=== PATIENT | female | born 1955 | race African-American/Black ===

== ENCOUNTER → 2017-09-17 | Outpatient (CLI) | payer MEDICARE ==
--- NOTE | 2017-09-18 18:12 | WOMENS IMAGING REPORT ---
EXAM DESCRIPTION: 3D SCREENING MAMMO BILAT COMPLETED DATE/TIME: 09/17/2017 12:38 pm REASON FOR STUDY: SCREENING MAMMOM /Z12.31 Z12.31 ENCNTR SCREEN MAMMOGRAM FOR MALIGNANT NEOPLASM OF ASHLYN COMPARISON: None. TECHNIQUE: Standard craniocaudal and mediolateral oblique views of each breast recorded using digita l acquisition and breast tomosynthesis. LIMITATIONS: None. FINDINGS: No masses, calcifications or architectural distortion. No areas of suspicion. Read with the assistance of CAD. .[facility] - R2 Cenova Version 1.3 .[facility] - R2 Cenova Version 1.3 .[facility] - R2 Cenova Version 2.4 .[facility] [place] [place] - R2 Cenova Version 2.4 .[facility] - R2 Billing Representative Version 9.2 IMPRESSION: NORMAL MAMMOGRAM. BIRADS 1. BREAST DENSITY: b. There are scattered areas of fibroglandular density. BIRAD: 1 NEGATIVE RECOMMENDATION: ROUTINE SCREENING COMMENT: The patient has been notified of the results by letter per SA requirements. Additional no tification policies are in place for contacting patient with suspicious or incomplete findings. Quality ID #225: The [employer] recommends an annual screening mammogram for women aged 40 years or over. This facility utilizes a reminder system to ensure that all patients receive reminder letters, and/or direct phone calls for appointments. This includes reminders for routine scr eening mammograms, diagnostic mammograms, or other Breast Imaging Interventions when appropriate. Th is patient will be placed in the appropriate reminder system. The [employer] (ACR) has developed recommendations for screening MRI of the breast s in certain patient populations, to be used in conjunction with mammography. Breast MRI surveillanc e may be appropriate for women with more than 20% lifetime risk of developing breast cancer as deter mined by genetic testing, significant family history of the disease, or history of mantle radiation f or Hodgkins Disease. ACR Practice Guidelines 2008. DBT Technology DBT is a type of tomographic mammography. With conventional mammography, overlapping breast tissue ma y make lesions difficult to detect, even with good compression. DBT uses an x-ray tube that rotates a round the breast, taking images at different angles. These images are then combined to create thin sl ices of the breast that the radiologist can view as a 3D reconstruction. The [employer]. unit can perform full-field digital mammograms (2D imaging); or DBT (3D imaging); or both, in a combination mode that quickly performs both the mammogram and the tomosynthesis scan while the breast is still compressed. PQRS 6045F: Fluoroscopic imaging is not utilized for breast tomosynthesis. TECHNICAL DOCUMENTATION: FINDING NUMBER: (1) ASSESSMENT: (1) JOB ID: [id number] [employer]- All Rights Reserved Reading location - IP/workstation name: [email or web address]
== END ==
LOC: WI 11:23
PROVIDERS: ATTEND Physician Assistant
DX: Z12.31 Encounter for screening mammogram for malignant neoplasm of breast (principal)
CPT/HCPCS: 77063; 77067

== ENCOUNTER → 2017-10-09 | Outpatient (CLI) | payer MEDICARE ==
--- NOTE | 2017-10-09 11:12 | RADIOLOGY REPORT (SQ) ---
EXAM DESCRIPTION: CT ABDOMEN COMBO COMPLETED DATE/TIME: 10/09/2017 10:41 am REASON FOR STUDY: ABNORMAL RADIOLOGIC FINDINGS ON DX IMAGING OF R KIDNEY R93.421 ABNORMAL RADIOLOGI C FINDINGS ON DX IMAGING OF R KIDN COMPARISON: None. TECHNIQUE: CT scan of the abdomen performed with and without intravenous contrast, and without oral contrast. Contrasted imaging performed using helical scanning technique with dynamic intravenous cont rast injection. Images reviewed with lung, soft tissue, and bone windows. Reconstructed coronal and s agittal MPR images reviewed. Delayed images for evaluation of the urinary system also acquired and ev aluated. All images stored on PACS. All CT scanners at this facility use dose modulation, iterative reconstruction, and/or weight based d osing when appropriate to reduce radiation dose to as low as reasonably achievable (ALARA). [facility]: Dose Right [facility]: CareDose [facility]: Dose Right [facility]: Teradose 4D [facility]: [employer] CONTRAST TYPE AND DOSE: contrast/concentration: Isovue 370.00 mg/ml; Total Contrast Delivered: 112.0 ml; Total Saline Delivered: 160.0 ml RENAL FUNCTION: Creatinine 1.0 RADIATION DOSE: CT Rad equipment meets quality standard of care and radiation dose reduction techniq ues were employed. CTDIvol: 11.3 - 33.8 mGy. DLP: 2075 mGy-cm.. LIMITATIONS: None. FINDINGS: NONCONTRASTED IMAGING: No significant renal or bladder calcifications. No other significan t organ calcifications. POSTCONTRASTED IMAGING: LOWER CHEST: No significant findings. No nodules or infiltrates. LIVER: Normal size. No masses. No dilated ducts. SPLEEN: Normal size. No focal lesions. PANCREAS: No masses. No significant calcifications. No adjacent inflammation or peripancreatic fluid collections. Pancreatic duct not dilated. GALLBLADDER: No identified stones by CT criteria. No inflammatory changes to suggest cholecystitis. ADRENAL GLANDS: No significant masses or asymmetry. RIGHT KIDNEY AND URETER: No solid masses. Small 1.2 cm in diameter renal cyst is identified. There are focal areas of cortical thinning which could represent scarring or old renal infarcts. No signi ficant calcifications. No hydronephrosis or hydroureter. LEFT KIDNEY AND URETER: No solid masses. Couple small cortical defects are identified which could re present scarring or old renal infarcts. No significant calcifications. No hydronephrosis or hydrou reter. AORTA AND VESSELS: No aneurysm. No dissection. Renal arteries, SMA, celiac without stenosis. RETROPERITONEUM: No retroperitoneal adenopathy, hemorrhage or masses. BOWEL AND PERITONEAL CAVITY: No masses or inflammatory changes. No free fluid or peritoneal masses. APPENDIX: Not visualized ABDOMINAL WALL: No masses. No hernias. BONES: No significant or acute findings. OTHER: No other significant finding. IMPRESSION: No renal masses are identified. Small right renal cyst. Bilateral cortical defects are identified right greater than left which could represent scarring or old renal infarcts. Other find ings as noted above TECHNICAL DOCUMENTATION: JOB ID: [id number] Quality ID # 436: Final reports with documentation of one or more dose reduction techniques (e.g., Au tomated exposure control, adjustment of the mA and/or kV according to patient size, use of iterative reconstruction technique) 2010 [employer]- All Rights Reserved Reading location - IP/workstation name: [email or web address]
== END ==
LOC: RAD 09:55
PROVIDERS: ATTEND Physician Assistant
DX: R93.421 Abnormal radiologic findings on diagnostic imaging of right kidney (principal); R93.2 Abnormal findings on diagnostic imaging of liver and biliary tract; N28.1 Cyst of kidney, acquired
CPT/HCPCS: 74170

== ENCOUNTER → 2018-02-11 | Outpatient (CLI) | payer MEDICARE ==
[2018-02-12 12:04] LABS: CERULOPLASMIN 37.9 mg/dL (19.0-39.0)
[2018-02-13 08:22] LABS: ANTINUCLEAR ANTIBODIES Negative (Negative)
== END ==
LOC: OD 11:51
PROVIDERS: ATTEND Internal Medicine Gastroenterology
DX: R94.5 Abnormal results of liver function studies (principal); R71.8 Other abnormality of red blood cells
CPT/HCPCS: 36415; 82390; 82728; 86038; 86256

== ENCOUNTER 2018-02-14 07:51 | Day surgery (SDC) | payer MEDICARE ==
[~2018-02-14 07:51] MED LIST: DIPHENHYDRAMINE HCL 50 MG/ML VIAL ONE; EPINEPHRINE INJ 1 MG/10 ML DISP.SYRIN ONE; FENTANYL CITRATE INJ/PF 100 MCG/2 ML AMPUL ONE; FLUMAZENIL INJ 0.5 MG/5 ML VIAL ONE; GLUCAGON,HUMAN RECOMB 1 MG INJ ONE; NALOXONE HCL INJ/PF 0.4 MG/1 ML SDV ONE; ONDANSETRON HCL INJ/PF 4 MG/2 ML SDV ONE
[2018-02-14] MEDS: MIDAZOLAM 2 MG/2 ML INJ ONE ×2 (08:50→08:54)
--- NOTE | 2018-02-14 09:05 | Operative Report ---
Operative Report DATE OF SURGERY: 02/14/18 Operative Report: The risks benefits and alternatives of the procedure explained to the patient in detail and informed consent is obtained.A GIF Olympus video scope was inserted into the patient's mouth and hypopharynx, the esophagus is identified intubated and insufflated ,the scope was then advanced through the esophagus stomach and duodenum ,retroflexion maneuver is done the esophagus stomach and first and second portions of the duodenum examined PREOPERATIVE DIAGNOSIS: Abdominal bloating, dyspepsia POSTOPERATIVE DIAGNOSIS: Gastritis status post biopsy rule out Helicobacter pylori OPERATION: EGD with biopsy SURGEON: BRANDON MOREL ANESTHESIA: Moderate Sedation - 4 mg of Versed, 50 mcg of fentanyl. Conscious sedation monitoring time 30 minutes. TISSUE REMOVED OR ALTERED: As noted above. COMPLICATIONS: None. ESTIMATED BLOOD LOSS: None. INTRAOPERATIVE FINDINGS: As noted above. PROCEDURE: Patient tolerated the procedure well. No immediate postprocedure complications are noted. Patient discharged in good condition. Discharge date 02/14/2018. Discharge diet: Regular. Discharge activity: Regular. 2-3-week follow-up to discuss findings. Patient is instructed to call the office or proceed to the emergency room should there be any further problems or questions. Wait on the pathology.
[2018-02-14 10:09] VITALS: BP 119/76
== END 2018-02-14 10:10 | disposition home or self-care (01) ==
LOC: END 07:51 → MERGE 07:51 → END 10:10
PROVIDERS: ATTEND Internal Medicine Gastroenterology
DX: K29.70 Gastritis, unspecified, without bleeding (principal); R13.10 Dysphagia, unspecified; I48.2 Chronic atrial fibrillation; Z79.01 Long term (current) use of anticoagulants; I10 Essential (primary) hypertension; Z95.2 Presence of prosthetic heart valve
CPT/HCPCS: 43239; 88342 ×2; 88305 ×2; J2250; J3010; J0171; J1200; J1610; J2310; J2405; J3490

== ENCOUNTER → 2018-02-17 | Outpatient (CLI) | payer MEDICARE ==
--- NOTE | 2018-02-17 13:49 | RADIOLOGY REPORT (SQ) ---
EXAM DESCRIPTION: U/S ABDOMEN COMPLETE W/O DOP COMPLETED DATE/TIME: 02/17/2018 1:05 pm REASON FOR STUDY: ABN LFT (R94.5) R94.5 ABNORMAL RESULTS OF LIVER FUNCTION STUDIES COMPARISON: None. TECHNIQUE: Dynamic and static grayscale images acquired of the abdomen and recorded on PACS. Additio nal selected color Doppler and spectral images recorded. LIMITATIONS: None. FINDINGS: PANCREAS: No masses. Visualized pancreatic duct normal caliber. LIVER: The liver measures 17.4 cm in length, upper limits of normal size. No masses. Echotexture nor mal. LIVER VASCULATURE: Normal directional flow of the main portal vein and hepatic veins. GALLBLADDER: No stones. The gallbladder wall measures 2.9 mm, upper limits of normal wall thickness. No pericholecystic fluid. ULTRASOUND-DETECTED COOPER'S SIGN: Negative. INTRAHEPATIC DUCTS AND COMMON DUCT: CBD measures 4.0 mm in diameter, normal. The intrahepatic ducts n ormal caliber. No filling defects. INFERIOR VENA CAVA: Normal flow. AORTA: No aneurysm. RIGHT KIDNEY: The right kidney measures 10.8 cm in length, normal size. Normal echogenicity. No so lid or suspicious masses. No hydronephrosis. No calcifications. LEFT KIDNEY: The left kidney measures 10.5 cm in length, normal size. Normal echogenicity. No so lid or suspicious masses. No hydronephrosis. No calcifications. SPLEEN: The spleen measures 10.6 cm in length, normal size. No solid masses. PERITONEAL AND PLEURAL SPACES: No ascites or effusions. OTHER: No other significant finding. IMPRESSION: 1. NORMAL ABDOMINAL ULTRASOUND. TECHNICAL DOCUMENTATION: JOB ID: [id number] [employer]- All Rights Reserved Reading location - IP/workstation name: [email or web address]
== END ==
LOC: RAD 10:51 → MERGE 10:51
PROVIDERS: ATTEND Internal Medicine Gastroenterology
DX: R94.5 Abnormal results of liver function studies (principal)
CPT/HCPCS: 76700

== ENCOUNTER → 2018-05-28 | Outpatient (CLI) | payer MEDICARE ==
--- NOTE | 2018-05-28 10:27 | RADIOLOGY REPORT (SQ) ---
EXAM DESCRIPTION: CT CHEST WITH COMPLETED DATE/TIME: 05/28/2018 8:25 am REASON FOR STUDY: LEFT LOWER QUADRANT ABD SWELLING, MASS AND LUMP (R19.04) R19.04 LEFT LOWER QUADRA NT ABDOMINAL SWELLING, MASS AND LUMP COMPARISON: None. TECHNIQUE: CT scan of the chest performed using helical scanning technique with dynamic intravenous contrast injection. Images reviewed with lung, soft tissue and bone windows. Reconstructed coronal and sagittal MPR and MIP images reviewed. All images stored on PACS. All CT scanners at this facility use dose modulation, iterative reconstruction, and/or weight based d osing when appropriate to reduce radiation dose to as low as reasonably achievable (ALARA). [facility]: Dose Right [facility]: CareDose [facility]: Dose Right [facility]: Teradose 4D [facility]: [employer] CONTRAST TYPE AND DOSE: 100 mL Omnipaque 350- low osmolar. RENAL FUNCTION: Creatinine 1 RADIATION DOSE: . LIMITATIONS: None. FINDINGS: LUNGS AND PLEURA: No opacities, nodules, masses. No pneumothorax. No effusions. HILAR AND MEDIASTINAL STRUCTURES: There are numerous mediastinal nodes. The largest is in the pretra cheal region and measures 14 mm in short axis. HEART AND VASCULAR STRUCTURES: Cardiomegaly. No aneurysm. No pericardial effusion. HARDWARE: Heart valve. Sternotomy wires. UPPER ABDOMEN: See separate report of the CT of the abdomen. THYROID AND OTHER SOFT TISSUES: No masses. No adenopathy. BONES: No significant finding. OTHER: No other significant finding. IMPRESSION: There is mild mediastinal adenopathy. Cardiomegaly. No acute pulmonary findings. TECHNICAL DOCUMENTATION: JOB ID: [id number] Quality ID # 436: Final reports with documentation of one or more dose reduction techniques (e.g., Au tomated exposure control, adjustment of the mA and/or kV according to patient size, use of iterative reconstruction technique) 2010 [employer]- All Rights Reserved Reading location - IP/workstation name: [email or web address]
--- NOTE | 2018-05-28 10:35 | RADIOLOGY REPORT (SQ) ---
EXAM DESCRIPTION: CT ABD/PELVIS WITH IV ORAL COMPLETED DATE/TIME: 05/28/2018 8:25 am REASON FOR STUDY: LEFT LOWER QUADRANT ABD SWELLING, MASS AND LUMP (R19.04) R19.04 LEFT LOWER QUADRA NT ABDOMINAL SWELLING, MASS AND LUMP COMPARISON: None. TECHNIQUE: CT scan of the abdomen and pelvis performed using helical scanning technique with dynamic intravenous contrast injection. Oral contrast. Images reviewed with lung, soft tissue, and bone win dows. Reconstructed coronal and sagittal MPR images reviewed. Delayed images for evaluation of the ur inary system also acquired. All images stored on PACS. All CT scanners at this facility use dose modulation, iterative reconstruction, and/or weight based d osing when appropriate to reduce radiation dose to as low as reasonably achievable (ALARA). [facility]: Dose Right [facility]: CareDose [facility]: Dose Right [facility]: Teradose 4D [facility]: [facility] CONTRAST TYPE AND DOSE: contrast/concentration: Isovue 350.00 mg/ml; Total Contrast Delivered: 100.0 ml; Total Saline Delivered: 72.0 ml RENAL FUNCTION: Creatinine 1 RADIATION DOSE: CT Rad equipment meets quality standard of care and radiation dose reduction techniq ues were employed. CTDIvol: 6.3 - 10.7 mGy. DLP: 1291 mGy-cm.. LIMITATIONS: None. FINDINGS: LOWER CHEST: Small right pleural effusion. LIVER: Normal size. No masses. No dilated ducts. SPLEEN: Normal size. No focal lesions. PANCREAS: No masses. No significant calcifications. No adjacent inflammation or peripancreatic fluid collections. Pancreatic duct not dilated. GALLBLADDER: No identified stones by CT criteria. No inflammatory changes to suggest cholecystitis. ADRENAL GLANDS: No significant masses or asymmetry. RIGHT KIDNEY AND URETER: No solid masses. No significant calcifications. No hydronephrosis or hyd roureter. LEFT KIDNEY AND URETER: No solid masses. No significant calcifications. No hydronephrosis or hydr oureter. AORTA AND VESSELS: No aneurysm. No dissection. Renal arteries, SMA, celiac without stenosis. RETROPERITONEUM: No retroperitoneal adenopathy, hemorrhage or masses. BOWEL AND PERITONEAL CAVITY: No masses or inflammatory changes. No free fluid or peritoneal masses. APPENDIX: Not identified. PELVIS: No mass. No free fluid. Normal bladder. ABDOMINAL WALL: No masses. No hernias. BONES: No significant or acute findings. OTHER: No other significant finding. IMPRESSION: Small right pleural effusion. No acute finding in the abdomen or pelvis. TECHNICAL DOCUMENTATION: JOB ID: [id number] Quality ID # 436: Final reports with documentation of one or more dose reduction techniques (e.g., Au tomated exposure control, adjustment of the mA and/or kV according to patient size, use of iterative reconstruction technique) 2010 [employer]- All Rights Reserved Reading location - IP/workstation name: [email or web address]
== END ==
LOC: RAD 07:41
PROVIDERS: ATTEND Internal Medicine
DX: R19.04 Left lower quadrant abdominal swelling, mass and lump (principal)
CPT/HCPCS: 71260; 74177; 82565

== ENCOUNTER 2018-06-02 08:39 | Day surgery (SDC) | payer MEDICARE ==
[~2018-06-02 08:39] MED LIST changes: -DIPHENHYDRAMINE HCL 50 MG/ML VIAL ONE; -EPINEPHRINE INJ 1 MG/10 ML DISP.SYRIN ONE; -FENTANYL CITRATE INJ/PF 100 MCG/2 ML AMPUL ONE; -FLUMAZENIL INJ 0.5 MG/5 ML VIAL ONE; -GLUCAGON,HUMAN RECOMB 1 MG INJ ONE; -NALOXONE HCL INJ/PF 0.4 MG/1 ML SDV ONE; -ONDANSETRON HCL INJ/PF 4 MG/2 ML SDV ONE; +PROPOFOL INJ 200 MG/20 ML VIAL IV ONE
[2018-06-02 10:48] VITALS: BP 133/89
--- NOTE | 2018-06-02 13:24 | Operative Report ---
Operative Report DATE OF SURGERY: 06/02/18 Operative Report: The risks, benefits and alternatives of the procedure including the risk of bleeding, perforation requiring surgery have been explained to the patient in detail and informed consent has been obtained. Patient is brought back to the endoscopy suite and placed in a left, lateral decubital position. Timeout was called. Propofol medication is administered. Rectal examination is done which did not reveal any masses, tears or fissures. An Olympus videoscope was introduced into the patient's rectum. The scope was then carefully advanced all the way to the cecum. The cecum was identified by the usual anatomical landmarks including the ileocecal valve as well as the appendiceal office. Photodocumentation is obtained. The scope was then sequentially pulled back via the rest segments of the colon including the ascending colon, hepatic flexure, transverse colon, splenic flexure, descending colon and finally into the rectosigmoid portions of the colon. Retroflexion maneuver was performed. PREOPERATIVE DIAGNOSIS: Anemia, colorectal cancer screening POSTOPERATIVE DIAGNOSIS: Normal colonoscopy to the cecum. No biopsies obtained OPERATION: Diagnostic colonoscopy SURGEON: BRANDON MOREL ANESTHESIA: LMAC TISSUE REMOVED OR ALTERED: None. COMPLICATIONS: None. ESTIMATED BLOOD LOSS: None. INTRAOPERATIVE FINDINGS: As noted above. PROCEDURE: Patient tolerated the procedure well. No immediate postprocedure complications are noted. Patient discharged in good condition. Discharge date 06/02/2018. Discharge diet: Regular. Discharge activity: Regular. 2-3-week follow-up to discuss findings. Patient is instructed call the office or proceed to the emergency room should there be any further problems or questions.
--- NOTE | 2018-06-03 13:02 | Progress Note ---
Provider Note Provider Note: Addendum to the procedure note 06/02/18 colon surveillance in 7-10 years since no family history of colon cancer.
--- NOTE | 2018-06-03 16:12 | Progress Note ---
Provider Note Provider Note: I was contacted by Samuel at [facility] I was informed that a follow up of 7-10 years for the patient was not appropriate. patient was sent for evaluation due to anemia. while she does have a normal colonoscopy, the recommendation is based upon clinical data. I am well aware of the screening recommendations based on a normal negative screening. However given the patient's anemia, recommendations are made in the best interest of the patient. If there is a disagreement with that, I will still perform the surveillance at another location. Thank you
== END 2018-06-02 10:51 | disposition home or self-care (01) ==
LOC: END 08:39
PROVIDERS: ATTEND Internal Medicine Gastroenterology
DX: Z12.11 Encounter for screening for malignant neoplasm of colon (principal); D64.9 Anemia, unspecified; I25.2 Old myocardial infarction; R01.1 Cardiac murmur, unspecified; I48.91 Unspecified atrial fibrillation; D68.9 Coagulation defect, unspecified; Z79.01 Long term (current) use of anticoagulants
CPT/HCPCS: G0121; J2704; 45378; 812

== ENCOUNTER → 2018-09-29 | Outpatient (CLI) | payer MEDICARE ==
--- NOTE | 2018-09-29 13:35 | WOMENS IMAGING REPORT ---
EXAM DESCRIPTION: 3D SCREENING MAMMO BILAT COMPLETED DATE/TIME: 09/29/2018 11:18 am REASON FOR STUDY: Z12.31 ROUTINE 3D BILATERAL SCREENING Z12.31 ENCNTR SCREEN MAMMOGRAM FOR MALIGNAN T NEOPLASM OF ASHLYN COMPARISON: 2018 EXAM PARAMETERS: Views: Standard craniocaudal and mediolateral oblique views of each breast recorded using digital acquisition and breast tomosynthesis. Read with the assistance of CAD. .[facility] - R2 Operations Supervisor Version 9.2 LIMITATIONS: None. FINDINGS: No suspicious masses, suspicious calcifications or architectural distortion. No areas of c oncern. IMPRESSION: NEGATIVE MAMMOGRAM. BIRADS 1. BREAST DENSITY: b. There are scattered areas of fibroglandular density. BIRAD: ASSESSMENT: 1 NEGATIVE RECOMMENDATION: ROUTINE SCREENING COMMENT: The patient has been notified of the results by letter per SA requirements. Additional no tification policies are in place for contacting patient with suspicious or incomplete findings. Quality ID #225: The [employer] recommends an annual screening mammogram for women aged 40 years or over. This facility utilizes a reminder system to ensure that all patients receive reminder letters, and/or direct phone calls for appointments. This includes reminders for routine scr eening mammograms, diagnostic mammograms, or other Breast Imaging Interventions when appropriate. Th is patient will be placed in the appropriate reminder system. TECHNICAL DOCUMENTATION: FINDING NUMBER: (1) ASSESSMENT: (1) JOB ID: [id number] [employer]- All Rights Reserved Reading location - IP/workstation name: [email or web address]
== END ==
LOC: WI 11:02
PROVIDERS: ATTEND Physician Assistant
DX: Z12.31 Encounter for screening mammogram for malignant neoplasm of breast (principal)
CPT/HCPCS: 77063; 77067

== ENCOUNTER → 2019-10-02 | Outpatient (CLI) | payer MEDICARE ==
--- NOTE | 2019-10-05 08:49 | WOMENS IMAGING REPORT ---
EXAM DESCRIPTION: 3D SCREENING MAMMO BILAT IMAGES COMPLETED DATE/TIME: 10/02/2019 1:55 pm REASON FOR STUDY: Z12.31 ENCOUNTER FOR SCREENING MAMMOGRAM FOR MALIGNANT NEOPLASM OF BREAST Z12.31 ENCNTR SCREEN MAMMOGRAM FOR MALIGNANT NEOPLASM OF ASHLYN COMPARISON: 2018 and subsequent EXAM PARAMETERS: Views: Standard craniocaudal and mediolateral oblique views of each breast recorded using digital acquisition and breast tomosynthesis. Read with the assistance of CAD. .[facility] - [employer] Cell Operator Version 9.2 LIMITATIONS: None. FINDINGS: No suspicious masses, suspicious calcifications or architectural distortion. No areas of c oncern. IMPRESSION: NEGATIVE MAMMOGRAM. BIRADS 1. BREAST DENSITY: b. There are scattered areas of fibroglandular density. BIRAD: ASSESSMENT: 1 NEGATIVE RECOMMENDATION: ROUTINE SCREENING COMMENT: The patient has been notified of the results by letter per MQSA requirements. Additional no tification policies are in place for contacting patient with suspicious or incomplete findings. Quality ID #225: The [employer] recommends an annual screening mammogram for women aged 40 years or over. This facility utilizes a reminder system to ensure that all patients receive reminder letters, and/or direct phone calls for appointments. This includes reminders for routine scr eening mammograms, diagnostic mammograms, or other Breast Imaging Interventions when appropriate. Th is patient will be placed in the appropriate reminder system. TECHNICAL DOCUMENTATION: FINDING NUMBER: (1) ASSESSMENT: (1) JOB ID: [id number] 2010 [employer]- All Rights Reserved Reading location - IP/workstation name: [email or web address]
== END ==
LOC: WI 13:09
PROVIDERS: ATTEND Physician Assistant
DX: Z12.31 Encounter for screening mammogram for malignant neoplasm of breast (principal)
CPT/HCPCS: 77063; 77067

== ENCOUNTER → 2019-10-23 | Outpatient (CLI) | payer MEDICARE ==
[~2019-10-23] MED LIST changes: +ALBUTEROL SULFATE 0.083% NEB 2.5 MG/3 ML AMPUL NEB ONE; -PROPOFOL INJ 200 MG/20 ML VIAL IV ONE
--- NOTE | 2019-10-26 11:30 | Pulmonary Function Test ---
Pulmonary Function Test Date of Procedure:: 10/23/19 - received 10/25/2019 INDICATION:: Dyspnea Referring Provider: Radha PALOMINO Director Property: Erlinda De La Rosa SALESPERSON [employer] NEEDS, EYE SPECIALIST - Report Spirometry: Spirometry: pre-FVC:1.95 54% post-FVC: 1.77 L 49% pre-FEV:1 1.25 L 43% post-FEV1: 1.18 L 41% pre-FEV1/FVC %: 34 post-FEV1/FVC%: 67 predicted: 82 [id number]%: 0.60 L 19% [id number]%: 0.66 L 21% Lung Volume: Total lung capacity: 3.83 L 67% Vital capacity: 1.95 L 54% Inspiratory capacity: 1.13 L FRC N2: 2.70 L 91% ERV: 0.28 L RV: 1.89 L 89% RV/TLC %:: 36 predicted 49 Diffusion Capactity: DLCO: 12.3 49% DLCO/VA: 3.29 81% Impression: Mild obstructive ventilatory defect. Mild restrictive ventilatory defect. (Restrictive defect may mask the degree of obstruction.) No hyperinflation or air trapping. Severe decrease in diffusion capacity.
== END ==
LOC: RT 11:42
PROVIDERS: ATTEND Physician Assistant
DX: R06.00 Dyspnea, unspecified (principal)
CPT/HCPCS: 94729; 94727; 94060; A9270

== ENCOUNTER 2019-11-23 05:18 | Emergency (ER) | payer MEDICARE ==
--- NOTE | 2019-11-23 07:39 | RADIOLOGY REPORT (SQ) ---
EXAM: X-ray hip two or more views, right CLINICAL DATA: Right hip pain TECHNICAL DATA: Two x-ray views of the right hip and pelvis were performed on 11/23/2019 at 7:11 AM. COMPARISONS: CT abdomen and pelvis performed on 05/28/2018 FINDINGS: There is no evidence of fracture or dislocation. There are very mild degenerative changes of the hip joints and pelvis and visualized lower lumbar spine. No focal lytic or sclerotic bone lesions are seen. Bone mineralization is normal. No focal soft tissue abnormalities are identified. Occasional arterial vascular calcifications are noted. IMPRESSION: No evidence of acute osseous injury involving the pelvis or right hip. There are very mild degenerative changes of the skeletal and vascular structures.
[2019-11-23 07:51] LABS: ABSOLUTE EOSINOPHILS # (AUTO) 0.1 10^3/uL (0.0-0.6); ABSOLUTE LYMPHOCYTES (AUTO) 0.9 10^3/uL (0.5-4.7); ABSOLUTE MONOCYTES (AUTO) 0.4 10^3/uL (0.1-1.4); ABSOLUTE NEUT (AUTO) 3.2 10^3/uL (1.7-8.2); BASOPHILS % (AUTO) 0.8 % (0-2); EOSINOPHILS % (AUTO) 2.9 % (0-6); HEMATOCRIT 29.9 % (36.0-47.0); HEMOGLOBIN 10.1 g/dL (12.0-15.5); LYMPHOCYTES % (AUTO) 19.1 % (13-45); MEAN CORPUSCULAR HEMOGLOBIN 26.2 pg (27.0-33.4); MEAN CORPUSCULAR HGB CONC 33.8 g/dL (32.0-36.0); MEAN CORPUSCULAR VOLUME 78 fl (80-97); MONOCYTES % (AUTO) 8.9 % (3-13); PLATELET COUNT 151 10^3/uL (150-450); RED BLOOD COUNT 3.86 10^6/uL (3.72-5.28); RED CELL DISTRIBUTION WIDTH 19.7 % (11.5-14.0); SEGMENTED NEUTROPHILS % (AUTO) 68.3 % (42-78); TOTAL CELLS COUNTED % (AUTO) 100 %; WHITE BLOOD COUNT 4.6 10^3/uL (4.0-10.5)
[2019-11-23 08:22] LABS: ALBUMIN 4.2 g/dL (3.5-5.0); ALKALINE PHOSPHATASE 342 U/L (38-126); ANION GAP 11 (5-19); ASPARTATE AMINO TRANSFERASE 67 U/L (14-36); BILIRUBIN,DIRECT 0.4 mg/dL (0.0-0.4); BILIRUBIN,TOTAL 1.8 mg/dL (0.2-1.3); BLOOD UREA NITROGEN 19 mg/dL (7-20); CALCIUM 9.7 mg/dL (8.4-10.2); CARBON DIOXIDE 30 mmol/L (22-30); CHLORIDE 98 mmol/L (98-107); CREATINE KINASE 53 U/L (30-135); GLUCOSE 113 mg/dL (75-110); POTASSIUM 3.9 mmol/L (3.6-5.0); TOTAL PROTEIN 10.5 g/dL (6.3-8.2)
--- NOTE | 2019-11-23 08:48 | ER Document Report ---
Entered by BRANDIN ARRIOLA SCRIBE 11/23/19 0638 Acting as scribe for:GEO HINKLE MD ED Extremity Problem, Lower - General Chief Complaint: Leg Pain Stated Complaint: SWELLING IN RIGHT LEG/UNABLE TO MOVE RIGHT LEG Primary Care Provider: NOEMI VERDUZCO PA-C [Primary Care Provider] - Follow up as needed Mode of Arrival: Ambulatory Information source: Patient Notes: This 64 year old female patient presents to the ED today with complaints of swelling to her RLE from her asher up to her thigh that started around 1900 yesterday evening. Patient states that she then developed pain to her right upper thigh that radiates to her groin and decreased sensation to her RLE. She reports that she has had problems with her right hip for years and has never had it x-rayed. 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 She states that she is scheduled to go to [place] on 11/25 for a valve replacement. Denies history of arthritis. Denies cough or shortness of breath. TRAVEL OUTSIDE OF THE [place] IN LAST 30 DAYS: No - Related Data Allergies/Adverse Reactions: No Known Allergies Allergy (Verified 06/02/18 08:54) Home Medications: digoxin. losartan. pantoprazole. atorvastatin. metoprolol. folic acid. baby ASA. torsemide. warfarin Past Medical History - General Information source: Patient, [facility] Records - Social History Smoking Status: Never Smoker Cigarette use (# per day): No Chew tobacco use (# tins/day): No Smoking Education Provided: No Frequency of alcohol use: Rare Drug Abuse: None Family History: Reviewed & Not Pertinent Patient has suicidal ideation: No Patient has homicidal ideation: No - Past Medical History Cardiac Medical History: Reports: Hx Coronary Artery Disease, Hx Heart Attack - X2, Hx Hypertension Neurological Medical History: Reports: Hx Cerebrovascular Accident Past Surgical History: Reports: Hx Cardiac Surgery - artificial valves - Immunizations Hx Diphtheria, Pertussis, Tetanus Vaccination: - UNSURE Hx Pneumococcal Vaccination: 03/18/15 Review of Systems - Review of Systems Constitutional: No symptoms reported EENT: No symptoms reported Cardiovascular: No symptoms reported Respiratory: See HPI. denies: Cough, Short of breath Gastrointestinal: No symptoms reported Genitourinary: No symptoms reported Female Genitourinary: No symptoms reported Musculoskeletal: See HPI, Muscle pain, Leg swelling Skin: No symptoms reported Hematologic/Lymphatic: No symptoms reported Neurological/Psychological: See HPI, Numbness, Tingling -: Yes All other systems reviewed and negative Physical Exam - Vital signs Vitals: Temp Pulse Resp BP Pulse Ox 99.2 F 83 18 111/71 97 11/23/19 05:35 11/23/19 05:35 11/23/19 05:35 11/23/19 05:35 11/23/19 05:35 Interpretation: Normal - General General appearance: Appears well, Alert In distress: None - HEENT Head: Normocephalic, Atraumatic Eyes: Normal Pupils: PERRL - Respiratory Respiratory status: No respiratory distress Chest status: Nontender Breath sounds: Normal Chest palpation: Normal - Cardiovascular Rhythm: Regular Heart sounds: Normal auscultation, S1 appreciated, S2 appreciated Murmur: No Friction rub: No Gallop: None auscultated Pulses: Normal: Femoral, Dorsalis pedis - Abdominal Inspection: Normal Distension: No distension Bowel sounds: Normal Tenderness: Nontender - Abdomen soft Organomegaly: No organomegaly - Back Back: Normal, Nontender - Extremities General upper extremity: Normal inspection General lower extremity: Other - Pain on palpation of greater tuberosity of right hip. No palpable hernias or swelling of right inguinal region. No: Edema - Neurological Neuro grossly intact: Yes Orientation: AAOx4 [place] Coma Scale Eye Opening: Spontaneous Gianfranco Coma Scale Verbal: Oriented Gianfranco Coma Scale Motor: Obeys Commands [place] Coma Scale Total: 15 - Psychological Associated symptoms: Normal affect, Normal mood - Skin Skin Temperature: Warm Skin Moisture: Dry Skin Color: Normal Course - Re-evaluation Re-evalutation: 11/23/19 08:55 Patient is aware of her chronic abnormal LFTs. She states that she is being followed by a semi conductor assembler and had a "flex scan/study" at [facility]. 11/23/19 11:32 Patient resting comfortably at this time. Not showing signs of distress. Patient is able to move her leg at this time. 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 Patient also has a chronic elevated liver function tests that she is being followed by with gastroenterology and customs manager for anemia. Patient also has valvular heart disease and is scheduled to have an evaluation of her valvular heart disease in 2 days. Patient currently on Lovenox which she knows to discontinue the day of proc edure. - Vital Signs Vital signs: Temp Pulse Resp BP Pulse Ox 97.7 F 98 16 125/73 99 11/23/19 11:25 11/23/19 11:25 11/23/19 11:25 11/23/19 11:25 11/23/19 11:25 11/23/19 11:36 Vital signs stable - Laboratory Result Diagrams: 11/23/19 07:42 11/23/19 07:42 Laboratory results interpreted by me: 11/23/19 11/23/19 07:42 07:42 Hgb 10.1 L Hct 29.9 L MCV 78 L MCH 26.2 L RDW 19.7 H Est GFR (MDRD) Non-Af 55 L Glucose 113 H Total Bilirubin 1.8 H AST 67 H ALT 46 H Alkaline Phosphatase 342 H Total Protein 10.5 H Patient has elevated liver function tests which according to patient are not new and patient is being followed by gastroenterology and hematology. - Diagnostic Test Radiology reviewed: Image reviewed, Reports reviewed Radiology results interpreted by me: 11/23/19 11:37 Right right hip x-ray shows degenerative changes otherwise no acute process. Patient does have some degenerative changes also noted in her vessels. 11/23/19 11:37 Venous Doppler studies have not been reported out as yet by radiologist but preliminary results does indicate no DVT. Discharge - Discharge Clinical Impression: Right hip pain, Right leg pain Condition: Stable Disposition: HOME, SELF-CARE Additional Instructions: Today we learned that you have no DVT that is deep vein thrombosis in your right leg. Also there is noted arthritis in your right hip joint area along with some degenerative blood vessels in that area. We recommend that you take Tylenol as needed inasmuch as you cannot take any nonsteroidal anti-inflammatory drugs due to your need for anticoagulant therapy. Also follow-up with your gas troenterologist and customs manager regarding your anemia and chronic liver function testing. Also there is no contraindication for you to continue forward with your evaluation of your valvular heart disease. Referrals: NOEMI VERDUZCO PA-C [Primary Care Provider] - Follow up as needed I personally performed the services described in the documentation, reviewed and edited the documentation which was dictated to the scribe in my presence, and it accurately records my words and actions.
[2019-11-23] MEDS ORDERED: ACETAMINOPHEN 325 MG TABLET PO ONE (08:55)
[2019-11-23 11:25] VITALS: BP 125/73
--- NOTE | 2019-11-23 11:44 | RADIOLOGY REPORT (SQ) ---
EXAM DESCRIPTION: VENOUS UNILATERAL LOWER IMAGES COMPLETED DATE/TIME: 11/23/2019 11:25 am REASON FOR STUDY: right leg swelling COMPARISON: None. TECHNIQUE: Dynamic and static hartman scale and color images acquired of the right leg venous system. S elected spectral images acquired with additional compression and augmentation maneuvers. The contrala teral common femoral vein and saphenofemoral junction were also imaged. Images stored on PACS. LIMITATIONS: None. FINDINGS: COMMON FEMORAL: Normal phasicity, compression and augmentation. No visualized echogenic ma terial on hartman scale. No defects on color images. FEMORAL: Normal compression and augmentation. No visualized echogenic material on hartman scale. No defe cts on color images. POPLITEAL: Normal compression, augmentation. No visualized echogenic material on hartman scale. No defec ts on color images. CALF VESSELS: Normal compression, augmentation. No visualized echogenic material on hartman scale. No de fects on color images. GSV and SSV: Normal compression, augmentation. No visualized echogenic material on hartman scale. No def ects on color images. ANY DEEP VENOUS INSUFFICIENCY: Not evaluated. ANY EVIDENCE OF POPLITEAL CYST: No. OTHER: No other significant finding. CONTRALATERAL COMMON FEMORAL VEIN AND SAPHENOFEMORAL JUNCTION: Normal phasicity, compression and augmentation. No visualized echogenic material on hartman scale. No de fects on color images. IMPRESSION: NO EVIDENCE OF DVT OR SVT IN THE RIGHT LEG. TECHNICAL DOCUMENTATION: JOB ID: [id number] 2010 [employer]- All Rights Reserved Reading location - IP/workstation name: [email or web address]
== END 2019-11-23 11:50 | disposition home or self-care (01) ==
LOC: ER 05:18
DX: M79.604 Pain in right leg (principal); M25.551 Pain in right hip; R20.0 Anesthesia of skin; Z95.2 Presence of prosthetic heart valve; Z79.01 Long term (current) use of anticoagulants; Z86.73 Personal history of transient ischemic attack (TIA), and cerebral infarction without residual deficits
CPT/HCPCS: 99285; 36415; 82550; 85025; 80053; 93971; 73502; A9270

== ENCOUNTER 2020-03-15 19:38 | Emergency (ER) | payer MEDICARE ==
[2020-03-15] MEDS ORDERED: NORMAL SALINE 500 ML IV ONE (21:44)
--- NOTE | 2020-03-15 21:45 | ER Document Report ---
ED General - General Chief Complaint: Nose Bleed Stated Complaint: NOSEBLEED Time Seen by Provider: 03/15/20 21:43 Primary Care Provider: NOEMI VERDUZCO PA-C [Primary Care Provider] - Follow up as needed RITA CORTES DO [ASSOCIATE] - Follow up as needed Mode of Arrival: Ambulatory Information source: Patient Notes: Patient presents to the ER for evaluation of left-sided nosebleed that began at approximately 1845 today when she blew her nose. The patient dates she does take Coumadin for an artificial valve. She states she has recently had her Coumadin checked and found it to be therapeutic. She denies nausea or vomiting. She states she has had a mild dry cough with some nasal congestion over the last several days. She denies fever. She denies shortness of breath or chest pain. She is extremely anxious during the exam. Her heart rate is approximately 130 at the time of the exam. Nursing notes reviewed and past medical, social, and family histories reviewed and validated. TRAVEL OUTSIDE OF THE [place] IN LAST 30 DAYS: No - Related Data Allergies/Adverse Reactions: No Known Allergies Allergy (Verified 06/02/18 08:54) Home Medications: atorvastatin, digoxin, folic acid, losartan, metoprolol, protonix, torsemide, vit d Past Medical History - General Information source: Patient - Social History Smoking Status: Never Smoker Chew tobacco use (# tins/day): No Frequency of alcohol use: None Drug Abuse: None Lives with: Family Family History: Reviewed & Not Pertinent Patient has suicidal ideation: No Patient has homicidal ideation: No - Past Medical History Cardiac Medical History: Reports: Hx Atrial Fibrillation, Hx Coronary Artery Disease, Hx Heart Attack - X2, Hx Hypertension Pulmonary Medical History: Reports: None Denies: Hx Asthma, Hx Bronchitis, Hx COPD, Hx Pneumonia EENT Medical History: Reports: None Neurological Medical History: Reports: Hx Cerebrovascular Accident. Denies: Hx Seizures Endocrine Medical History: Reports: None Renal/ Medical History: Reports: None Malignancy Medical History: Reports: None GI Medical History: Reports: None Musculoskeletal Medical History: Reports None, Denies Hx Arthritis Skin Medical History: Reports None Psychiatric Medical History: Reports: None Traumatic Medical History: Reports: None Infectious Medical History: Reports: None Past Surgical History: Reports: Hx Cardiac Surgery - artificial valves. Denies: Hx Hysterectomy - Immunizations Immunizations up to date: Yes Hx Diphtheria, Pertussis, Tetanus Vaccination: Yes - UNSURE Hx Pneumococcal Vaccination: 03/18/15 Review of Systems - Review of Systems Notes: Constitutional: Negative for fever. HENT: Negative for sore throat. Eyes: Negative for visual changes. Cardiovascular: Negative for chest pain. Respiratory: Negative for shortness of breath. Gastrointestinal: Negative for abdominal pain, vomiting or diarrhea. Genitourinary: Negative for dysuria. Musculoskeletal: Negative for back pain. Skin: Negative for rash. Neurological: Negative for headaches. Positive for lightheadedness. 10 point ROS negative except as marked above and in HPI. Physical Exam - Vital signs Vitals: Temp Pulse Resp BP Pulse Ox 97.8 F 137 H 18 132/100 H 98 03/15/20 19:43 03/15/20 19:43 03/15/20 19:43 03/15/20 19:43 03/15/20 19:43 - Notes Notes: CONSTITUTIONAL: Patient is anxious appearing. She is hyperventilating at the time of the exam. SKIN: Warm, dry, and intact without rash EYES: Extraocular movements are grossly intact, clear conjunctiva HENT: Normocephalic, atraumatic, moist mucus membranes. There is epistaxis from the left side only. No obvious source of bleeding is found. NECK: No obvious swelling, normal range of motion PULMONARY: Normal chest rise and fall. Breath sounds clear and equal andre aterally. No respiratory distress or stridor CARDIOVASCULAR: Regular rate. No murmurs, rubs, gallops. Distal extremities are warm and well perfused. ABDOMINAL: Soft, nontender NEUROLOGIC: Normal speech, moves all extremities. MUSCULOSKELETAL: No gross deformities, atraumatic PSYCHIATRIC: Anxious appearing Course - Re-evaluation Re-evalutation: 03/15/20 23:25 The Rhino Rocket came out of the left side of the nose. There is no active bleeding at this time and we will not replace the Rhino Rocket. 03/15/20 23:49 Rechecked patient who has responded well to treatment in the ER. She no longer feels lightheaded. She states her anxiety has improved. Her bleeding has stopped. Discussed with patient: results, diagnosis, treatment plan, and need for follow-up. Return to the emergency department warnings were given. All questions and concerns were addressed. The plan is agreed with and understood. Patient is stable and ready for discharge. - Vital Signs Vital signs: Temp Pulse Resp BP Pulse Ox 98.1 F 108 H 20 105/88 H 100 03/16/20 01:28 03/16/20 01:28 03/16/20 01:28 03/16/20 01:28 03/16/20 01:28 - Laboratory Results Result Diagrams: 03/15/20 22:45 03/15/20 22:15 Laboratory Results Interpreted: 03/15/20 03/15/20 03/15/20 22:15 22:15 22:45 RBC 3.67 L Hgb 10.5 L Hct 31.3 L RDW 16.9 H PT 24.0 H BUN 30 H Creatinine 1.71 H Est GFR ( Amer) 36 L Est GFR (MDRD) Non-Af 30 L Glucose 141 H Critical Laboratory Results Reviewed: No Critical Results - Radiology Results Critical Radiology Results Reviewed: No Critical Results Procedures - Nosebleed Procedure Left Supplies used: Rhinorocket Notes: I was unable to determine exactly where the bleed was coming from in the left side of the nose. The patient did blow a large clot out of her nose and then took Afrin to the left and right naris. I then placed a Rhino Rocket in the left nare and inflated with 10 cc air. The patient did stop bleeding immediately. She tolerated the procedure well. Discharge - Discharge Clinical Impression: Left-sided epistaxis Condition: Stable Disposition: HOME, SELF-CARE Instructions: Nosebleed Instructions (OM) Additional Instructions: Follow-up with ear, nose, throat this week. Referrals: NOEMI VERDUZCO PA-C [Primary Care Provider] - Follow up as needed RITA CORTES DO [ASSOCIATE] - Follow up as needed
[2020-03-15] MEDS ORDERED: OXYMETAZOLINE HCL 0.05% NASAL SPRAY 15 ML BOTTLE NASL ONE (22:03)
[2020-03-15 22:57] LABS: INTERNATIONAL RATION (INR) 2.14
[2020-03-15 22:59] LABS: ABSOLUTE BASOPHILS # (AUTO) 0.1 10^3/uL (0.0-0.2); ABSOLUTE EOSINOPHILS # (AUTO) 0.2 10^3/uL (0.0-0.6); ABSOLUTE LYMPHOCYTES (AUTO) 1.4 10^3/uL (0.5-4.7); ABSOLUTE MONOCYTES (AUTO) 0.6 10^3/uL (0.1-1.4); BASOPHILS % (AUTO) 0.9 % (0-2); EOSINOPHILS % (AUTO) 3.9 % (0-6); HEMATOCRIT 31.3 % (36.0-47.0); HEMOGLOBIN 10.5 g/dL (12.0-15.5); LYMPHOCYTES % (AUTO) 22.1 % (13-45); MEAN CORPUSCULAR HEMOGLOBIN 28.7 pg (27.0-33.4); MEAN CORPUSCULAR HGB CONC 33.6 g/dL (32.0-36.0); MEAN CORPUSCULAR VOLUME 85 fl (80-97); MONOCYTES % (AUTO) 9.1 % (3-13); PLATELET COUNT 204 10^3/uL (150-450); RED BLOOD COUNT 3.67 10^6/uL (3.72-5.28); RED CELL DISTRIBUTION WIDTH 16.9 % (11.5-14.0); TOTAL CELLS COUNTED % (AUTO) 100 %; WHITE BLOOD COUNT 6.2 10^3/uL (4.0-10.5)
[2020-03-15 23:14] LABS: ANION GAP 10 (5-19); BLOOD UREA NITROGEN 30 mg/dL (7-20); CALCIUM 10.2 mg/dL (8.4-10.2); CARBON DIOXIDE 29 mmol/L (22-30); CHLORIDE 99 mmol/L (98-107); GLUCOSE 141 mg/dL (75-110); POTASSIUM 4.4 mmol/L (3.6-5.0)
[2020-03-16 00:40] VITALS: BP 105/88
== END 2020-03-16 01:02 | disposition home or self-care (01) ==
LOC: ER 19:38
DX: R04.0 Epistaxis (principal); R05 Cough; R09.81 Nasal congestion; R42 Dizziness and giddiness; R06.4 Hyperventilation; I25.10 Atherosclerotic heart disease of native coronary artery without angina pectoris; I10 Essential (primary) hypertension; I48.91 Unspecified atrial fibrillation; I25.2 Old myocardial infarction; Z79.899 Other long term (current) drug therapy; Z79.01 Long term (current) use of anticoagulants; Z95.2 Presence of prosthetic heart valve
CPT/HCPCS: 99284; 96360; 96361 ×2; 36415; 85025; 85610; 80048; 30901; A9270; J7040; J3490